=== PATIENT | male | born 1945 | race Caucasian/White ===

== ENCOUNTER → 2021-09-28 | Outpatient (CLI) | payer MEDICARE, BC, OTHER ==
[~2021-09-28] MED LIST: ALLO100T PO; ASPI-255 PO; CARV25TA PO; CLOP75TA2 PO; COQ-100C5 PO; DOCU100C16 PO; ERGO500029 PO; EZET10TA21 PO; FINA5TAB2 PO; FLOM0.4C39 PO; FURO40TA2 PO; INSUH10VL SC; INSULANT SC; MAGN400T35 PO; PANT40TA29 PO; ROSU20TA5 PO; SPIR-10 PO; VERI10TA PO
== END ==
LOC: M LABSMTC 11:48
PROVIDERS: ATTEND Anesthesiology
DX: Z01.812 Encounter for preprocedural laboratory examination (principal); Z20.822 Contact with and (suspected) exposure to COVID-19

== ENCOUNTER 2021-10-02 06:19 | Day surgery (SDC) | payer MEDICARE, BC, OTHER ==
[~2021-10-02] VITALS: Ht 188 cm; Wt 99.5 kg
[~2021-10-02 06:19] MED LIST changes: +PROPARACAINE 0.5% OPHTH SOL 15ML OD ONE
[2021-10-02] MEDS ORDERED: LIDOCAINE 1% SDV 5ML VIAL As Ordered ONE (06:46)
[2021-10-02] MEDS ORDERED: POLYTRIM OPTH DROPS 10ML As Ordered ONE (06:46)
[2021-10-02] MEDS ORDERED: CEFUROXIME 1MG/0.1ML INTRACAMERAL INJ As Ordered ONE (06:47)
[2021-10-02] MEDS ORDERED: BSS IRR 500ML/OMIDRIA 4ML IRR BAG (OR ONLY) As Ordered ONE (06:47)
[2021-10-02] MEDS: TROPICAMIDE 1% OPHTH SOLN 2ML OD SCH ×2 (07:01→07:06)
[2021-10-02] MEDS: OFLOXACIN 0.3 % (OCUFLOX) OPTH SOL 5ML OD SCH ×2 (07:01→07:06)
[2021-10-02] MEDS: PHENYLEPHRINE 2.5% OPHTH SOL 2ML OD SCH ×2 (07:01→07:06)
[2021-10-02] MEDS ORDERED: MIDAZOLAM INJ 2MG/2ML VIAL (J2250 PER 1MG) As Ordered ONE (07:53)
[2021-10-02] MEDS ORDERED: fentaNYL 100 MCG/2 ML INJECTION As Ordered ONE (07:53)
[2021-10-02] MEDS ORDERED: PHENYLEPHRINE HCL 10 % OPHTH. SOL 5ML OD ONE (08:10)
[2021-10-02 09:45] VITALS: BP 109/61
== END 2021-10-02 10:05 | disposition home or self-care (01) ==
LOC: M SDC 06:19
PROVIDERS: ATTEND Ophthalmology
DX: H25.11 Age-related nuclear cataract, right eye (principal); I25.2 Old myocardial infarction; I10 Essential (primary) hypertension; I50.9 Heart failure, unspecified; E78.5 Hyperlipidemia, unspecified; E11.9 Type 2 diabetes mellitus without complications; K21.9 Gastro-esophageal reflux disease without esophagitis; Z95.0 Presence of cardiac pacemaker; Z95.810 Presence of automatic (implantable) cardiac defibrillator; Z98.61 Coronary angioplasty status; Z79.82 Long term (current) use of aspirin; Z79.4 Long term (current) use of insulin; Z79.02 Long term (current) use of antithrombotics/antiplatelets; Z79.899 Other long term (current) drug therapy; N40.0 Benign prostatic hyperplasia without lower urinary tract symptoms; G25.81 Restless legs syndrome
CPT/HCPCS: 66984; J0697; J1097; J2250; J3010; V2632

== ENCOUNTER → 2021-11-17 | Outpatient (CLI) | payer MEDICARE, BC, OTHER ==
[~2021-11-17] MED LIST changes: +CYCL-707 PO; -PROPARACAINE 0.5% OPHTH SOL 15ML OD ONE; +VITMTA PO
== END ==
LOC: M LABSMTC 10:01
PROVIDERS: ATTEND Anesthesiology
DX: Z11.52 Encounter for screening for COVID-19 (principal); Z20.828 Contact with and (suspected) exposure to other viral communicable diseases

== ENCOUNTER 2021-11-20 07:12 | Day surgery (SDC) | payer MEDICARE, BC, OTHER ==
[~2021-11-20] VITALS: Ht 188 cm; Wt 100.7 kg
[~2021-11-20 07:12] MED LIST changes: +BSS IRR 500ML/OMIDRIA 4ML IRR BAG (OR ONLY) As Ordered ONE; +CEFUROXIME 1MG/0.1ML INTRACAMERAL INJ As Ordered ONE; +LIDOCAINE 1% SDV 5ML VIAL As Ordered ONE; +PROPARACAINE 0.5% OPHTH SOL 15ML OS ONE
[2021-11-20] MEDS: PHENYLEPHRINE 2.5% OPHTH SOL 2ML OS SCH ×2 (07:50→07:59)
[2021-11-20] MEDS: TROPICAMIDE 1% OPHTH SOLN 2ML OS SCH ×2 (07:50→07:59)
[2021-11-20] MEDS: OFLOXACIN 0.3 % (OCUFLOX) OPTH SOL 5ML OS SCH ×2 (07:50→07:59)
[2021-11-20] MEDS ORDERED: MIDAZOLAM INJ 2MG/2ML VIAL (J2250 PER 1MG) As Ordered ONE (09:28)
[2021-11-20 09:37] VITALS: BP 151/82
== END 2021-11-20 10:04 | disposition home or self-care (01) ==
LOC: M SDC 07:12
PROVIDERS: ATTEND Ophthalmology
DX: H25.22 Age-related cataract, morgagnian type, left eye (principal); H21.81 Floppy iris syndrome; I10 Essential (primary) hypertension; E11.9 Type 2 diabetes mellitus without complications; E78.5 Hyperlipidemia, unspecified; M19.90 Unspecified osteoarthritis, unspecified site; Z87.81 Personal history of (healed) traumatic fracture; Z79.899 Other long term (current) drug therapy; Z79.4 Long term (current) use of insulin; Z79.82 Long term (current) use of aspirin; Z79.02 Long term (current) use of antithrombotics/antiplatelets
CPT/HCPCS: 66982; J0697; J1097; J2250; V2632

== ENCOUNTER → 2022-08-26 | Outpatient (CLI) | payer MEDICARE, BC, OTHER ==
[~2022-08-26] MED LIST changes: -BSS IRR 500ML/OMIDRIA 4ML IRR BAG (OR ONLY) As Ordered ONE; -CEFUROXIME 1MG/0.1ML INTRACAMERAL INJ As Ordered ONE; -LIDOCAINE 1% SDV 5ML VIAL As Ordered ONE; -PROPARACAINE 0.5% OPHTH SOL 15ML OS ONE; -ROSU20TA5 PO; +ROSU20TA61 PO
== END ==
LOC: M SOG 12:18
PROVIDERS: ATTEND Physician Assistant
DX: M19.042 Primary osteoarthritis, left hand (principal)

== ENCOUNTER 2022-09-03 07:44 | Day surgery (SDC) | payer MEDICARE, BC ==
[~2022-09-03] VITALS: Ht 188 cm; Wt 91.5 kg
[~2022-09-03 07:44] MED LIST changes: +LIDOCAINE W/EPINEPHRINE 1% 20ML VIAL XX ONE; +SODIUM BICARBONATE 8.4% INJ 50MEQ 50ML VIAL XX ONE
[2022-09-03] MEDS ORDERED: BACITRACIN OINTMENT 30GM TUBE As Ordered ONE (08:37)
[2022-09-03 09:23] VITALS: BP 112/62; TEMP 97.6; O2SAT 96
== END 2022-09-03 09:36 | disposition home or self-care (01) ==
LOC: M SDC 07:44
PROVIDERS: ATTEND Orthopaedic Surgery Hand Surgery
DX: M67.442 Ganglion, left hand (principal); I51.9 Heart disease, unspecified; E11.9 Type 2 diabetes mellitus without complications; M19.90 Unspecified osteoarthritis, unspecified site; R05.9 Cough, unspecified; R06.00 Dyspnea, unspecified; J31.0 Chronic rhinitis; Z79.899 Other long term (current) drug therapy; Z79.82 Long term (current) use of aspirin; Z79.02 Long term (current) use of antithrombotics/antiplatelets

== ENCOUNTER → 2023-06-03 | Outpatient (REF) | payer OTHER, MEDICARE ==
[~2023-06-03] MED LIST changes: -LIDOCAINE W/EPINEPHRINE 1% 20ML VIAL XX ONE; -SODIUM BICARBONATE 8.4% INJ 50MEQ 50ML VIAL XX ONE
== END ==
LOC: M LAB REF 17:33
PROVIDERS: ATTEND Internal Medicine Nephrology
DX: N40.1 Benign prostatic hyperplasia with lower urinary tract symptoms (principal)

== ENCOUNTER → 2023-10-03 | Outpatient (CLI) | payer MEDICARE, BC, OTHER ==
[~2023-10-03] MED LIST changes: +CBD GUMMIES; +CO Q10CA PO; +LINZ72CA; +MECL25CH45; +MULT-90 PO; +TRAM50TA2 PO
== END ==
LOC: M RAD 13:30
PROVIDERS: ATTEND Internal Medicine Hematology & Oncology
DX: C64.9 Malignant neoplasm of unspecified kidney, except renal pelvis (principal); I51.7 Cardiomegaly; N62 Hypertrophy of breast; K80.20 Calculus of gallbladder without cholecystitis without obstruction; K56.41 Fecal impaction

== ENCOUNTER → 2023-11-04 | Outpatient (CLI) | payer MEDICARE, BC, OTHER ==
[~2023-11-04] MED LIST changes: +CARV6.25 PO; +IPRA0.00 NEB; +NEBU1EAC78 MC; +ONDA-83 PO
== END ==
LOC: M ONCR 13:54
PROVIDERS: ATTEND General Practice
DX: C64.1 Malignant neoplasm of right kidney, except renal pelvis (principal); R31.9 Hematuria, unspecified; R91.8 Other nonspecific abnormal finding of lung field; Z79.4 Long term (current) use of insulin; Z79.82 Long term (current) use of aspirin; Z79.899 Other long term (current) drug therapy; Z80.0 Family history of malignant neoplasm of digestive organs; Z80.3 Family history of malignant neoplasm of breast; Z80.51 Family history of malignant neoplasm of kidney

== ENCOUNTER 2023-11-18 15:48 | Outpatient (RCR) | payer MEDICARE, BC, OTHER | END 2023-11-21 | LOC: M ONCR 15:48 | PROVIDERS: ATTEND General Practice | DX: Z51.0 Encounter for antineoplastic radiation therapy (principal); C64.1 Malignant neoplasm of right kidney, except renal pelvis ==

== ENCOUNTER → 2024-02-23 | Outpatient (CLI) | payer MEDICARE, BC, OTHER ==
[~2024-02-23] MED LIST changes: +CONS10SO3; +LACT20EL PO; -ROSU20TA61 PO; +ROSU20TA86 PO
== END ==
LOC: M ONCR 10:58
PROVIDERS: ATTEND General Practice
DX: C64.1 Malignant neoplasm of right kidney, except renal pelvis (principal); R31.9 Hematuria, unspecified; R52 Pain, unspecified; Z92.3 Personal history of irradiation; Z79.891 Long term (current) use of opiate analgesic; Z79.4 Long term (current) use of insulin; Z79.82 Long term (current) use of aspirin; Z79.02 Long term (current) use of antithrombotics/antiplatelets; Z79.899 Other long term (current) drug therapy

== ENCOUNTER → 2024-07-09 | Outpatient (CLI) | payer MEDICARE, BC, OTHER ==
[~2024-07-09] MED LIST changes: -FLOM0.4C39 PO; +TAMS-18 PO
== END ==
LOC: M RAD 06:50
DX: C64.1 Malignant neoplasm of right kidney, except renal pelvis (principal); J98.11 Atelectasis; R91.8 Other nonspecific abnormal finding of lung field; R59.0 Localized enlarged lymph nodes; K80.20 Calculus of gallbladder without cholecystitis without obstruction

== ENCOUNTER → 2024-09-06 | Outpatient (CLI) | payer MEDICARE, BC, OTHER | LOC: M ONCR 09:48 | PROVIDERS: ATTEND General Practice | DX: C64.1 Malignant neoplasm of right kidney, except renal pelvis (principal); R31.9 Hematuria, unspecified; Z79.620 Long term (current) use of immunosuppressive biologic; Z79.4 Long term (current) use of insulin; Z79.82 Long term (current) use of aspirin; Z79.899 Other long term (current) drug therapy; Z92.3 Personal history of irradiation ==